=== PATIENT | female | born 1940 | race Caucasian/White ===

== ENCOUNTER 2022-03-05 13:37 | Inpatient (IN) ==
[2022-03-05] MEDS ORDERED: 0.9 % Sodium Chloride 1,000 ML IV ONE (14:34)
[2022-03-05 15:02] LABS: Basophils # 0.1 K/mcL (0.0-0.2); Basophils % 1.4 %; Eosinophils # 0.1 K/mcL (0.0-0.6); Eosinophils % 2.5 %; Hematocrit 28.6 % (35.3-44.9); Hemoglobin 8.9 g/dL (11.5-15.4); Immature Granulocytes % 0.2 % (0-4); Lymphocytes # 0.7 K/mcL (0.6-4.6); Lymphocytes % 16.5 %; Mean Corpuscular HGB Conc 31.1 g/dL (31.6-35.5); Mean Corpuscular Hemoglobin 27.9 pg (28.0-33.3); Mean Corpuscular Volume 89.7 fL (83.0-100.0); Mean Platelet Volume 10.7 fL (9.4-12.4); Monocytes # 0.4 K/mcL (0.0-1.3); Neutrophils # 3.1 K/mcL (1.6-8.9); Platelet Count 142 K/mcL (140-400); Red Blood Count 3.19 M/mcL (3.82-4.97); Red Cell Distribution Width 16.6 % (11.5-14.5); Segmented Neutrophils % 70.4 %; White Blood Count 4.4 K/mcL (4.3-11.1)
[2022-03-05 15:15] LABS: INR 1.6; Prothrombin Time 17.9 Seconds (9.4-12.1)
[2022-03-05 15:17] LABS: Activated Partial Thrombo Time 37.1 Seconds (26.0-36.0)
[2022-03-05 15:19] LABS: Alanine Aminotransferase 11 Units/L (7-52); Albumin 2.9 g/dL (3.5-5.7); Albumin/Globulin Ratio 1.3 (1.1-2.2); Alkaline Phosphatase 77 Units/L (34-104); Aspartate Amino Transferase 21 Units/L (13-39); BUN/Creatinine Ratio 14 (6-26); Bilirubin,Total 0.4 mg/dL (0.3-1.0); Blood Urea Nitrogen 10 mg/dL (8-23); Calcium 8.4 mg/dL (8.6-10.3); Carbon Dioxide 27 mEq/L (23-29); Chloride 99 mEq/L (98-107); Globulin 2.3 g/dL (2.4-3.5); Glucose 86 mg/dL (70-105); Osmolality,Calculated 270 (280-300); Potassium 4.8 mEq/L (3.5-5.1); Sodium 131 mEq/L (136-145); Total Protein 5.2 g/dL (6.4-8.9); eGFR For African Americans > 60 (> 60); eGFR For Non-African Americans > 60 (> 60)
[2022-03-05 15:25] LABS: Troponin I 0.07 ng/mL (< 0.04)
[2022-03-05] MEDS ORDERED: Iopamidol - 370 500 ML MLS IVP ONE (20:25)
[2022-03-05] MEDS ORDERED: Ondansetron ODT 4 MG TAB.RAPDIS SL PRN (21:18)
[2022-03-05] MEDS ORDERED: Acetaminophen 325 MG TABLET PO PRN (21:18)
[2022-03-05] MEDS ORDERED: Naloxone 0.4 MG/ML INJ IVP PRN (21:18)
[2022-03-05] MEDS ORDERED: Melatonin 3 MG TABLET PO PRN (21:18)
[2022-03-05] MEDS ORDERED: Perflutren Lipid Microsphere 1.3 ML in 0.9 % Sodium Chloride 8.7 ML IVP PRN (21:23)
[2022-03-05] MEDS ORDERED: Furosemide 40 MG/4 ML VIAL IVP ONE (21:24)
[2022-03-05] MEDS: *HR* HYDROcodone/Acet 5/325 mg TABLET PO PRN (22:36)
[2022-03-06 02:37] LABS: Basophils # 0.1 K/mcL (0.0-0.2); Basophils % 1.4 %; Eosinophils # 0.2 K/mcL (0.0-0.6); Eosinophils % 2.9 %; Hematocrit 29.1 % (35.3-44.9); Hemoglobin 9.1 g/dL (11.5-15.4); Immature Granulocytes % 0.6 % (0-4); Lymphocytes # 0.9 K/mcL (0.6-4.6); Lymphocytes % 16.9 %; Mean Corpuscular HGB Conc 31.3 g/dL (31.6-35.5); Mean Corpuscular Hemoglobin 28.1 pg (28.0-33.3); Mean Corpuscular Volume 89.8 fL (83.0-100.0); Mean Platelet Volume 10.3 fL (9.4-12.4); Monocytes # 0.5 K/mcL (0.0-1.3); Monocytes % 9.3 %; Neutrophils # 3.6 K/mcL (1.6-8.9); Platelet Count 140 K/mcL (140-400); Red Blood Count 3.24 M/mcL (3.82-4.97); Red Cell Distribution Width 16.5 % (11.5-14.5); Segmented Neutrophils % 68.9 %; White Blood Count 5.2 K/mcL (4.3-11.1)
[2022-03-06 02:53] LABS: Alanine Aminotransferase 11 Units/L (7-52); Albumin/Globulin Ratio 1.3 (1.1-2.2); Alkaline Phosphatase 78 Units/L (34-104); Aspartate Amino Transferase 22 Units/L (13-39); BUN/Creatinine Ratio 13 (6-26); Bilirubin,Total 0.5 mg/dL (0.3-1.0); Blood Urea Nitrogen 9 mg/dL (8-23); Calcium 8.3 mg/dL (8.6-10.3); Carbon Dioxide 26 mEq/L (23-29); Chloride 99 mEq/L (98-107); Globulin 2.3 g/dL (2.4-3.5); Glucose 74 mg/dL (70-105); Magnesium 1.7 mg/dL (1.6-2.6); Osmolality,Calculated 273 (280-300); Phosphorous 3.9 mg/dL (2.7-4.5); Potassium 3.7 mEq/L (3.5-5.1); Sodium 133 mEq/L (136-145); Total Protein 5.3 g/dL (6.4-8.9); eGFR For African Americans > 60 (> 60); eGFR For Non-African Americans > 60 (> 60)
[2022-03-06] MEDS: *HR* OxyCODONE Immed Rel 5 MG TABLET PO PRN (04:23)
[2022-03-06] MEDS ORDERED: NON-FORMULARY MEDICATION 1 EACH EACH (Oxycodone Hcl [Roxybond] 5 MG Tablet.Orl) PO PRN (08:24)
[2022-03-06] MEDS ORDERED: tiZANidine 4 MG TABLET PO PRN (08:24)
[2022-03-06] MEDS ORDERED: polyethylene glycoL 3350 17 GM POWD.PACK PO PRN (08:24)
[2022-03-06] MEDS: Sennosides 8.6 MG TABLET PO SCH ×2 (09:24→19:59)
[2022-03-06] MEDS: lisinopriL 5 MG TABLET PO SCH (09:24)
[2022-03-06] MEDS: Gabapentin 300 MG CAPSULE PO SCH ×2 (09:24→19:59)
[2022-03-06] MEDS: *HR* OxyCODONE Immed Rel 5 MG TABLET PO SCH ×3 (09:25→19:59)
[2022-03-06] MEDS: Aspirin Enteric Coated 81 MG Tablet PO SCH (09:25)
[2022-03-06] MEDS: Metoprolol XL (24 HR) Succ 25 MG TAB.ER.24H PO SCH (09:25)
[2022-03-06] MEDS: Famotidine 20 MG TABLET PO SCH (09:25)
[2022-03-06] MEDS: rOPINIRole 1 MG TABLET PO SCH (09:26)
[2022-03-06] MEDS: Furosemide 40 MG/4 ML VIAL IVP SCH ×2 (09:31→17:31)
[2022-03-06] MEDS: (Leflunomide [Arava] 20 MG Tablet) PO SCH (11:02)
[2022-03-06] MEDS: Apixaban 2.5 MG TABLET PO SCH (20:00)
[2022-03-07] MEDS: *HR* HYDROcodone/Acet 5/325 mg TABLET PO PRN (05:41)
[2022-03-07 07:05] LABS: Basophils # 0.1 K/mcL (0.0-0.2); Basophils % 1.2 %; Eosinophils # 0.1 K/mcL (0.0-0.6); Eosinophils % 2.3 %; Hematocrit 31.2 % (35.3-44.9); Hemoglobin 10.2 g/dL (11.5-15.4); Immature Granulocytes % 0.2 % (0-4); Lymphocytes # 0.6 K/mcL (0.6-4.6); Lymphocytes % 10.8 %; Mean Corpuscular HGB Conc 32.7 g/dL (31.6-35.5); Mean Corpuscular Hemoglobin 28.4 pg (28.0-33.3); Mean Corpuscular Volume 86.9 fL (83.0-100.0); Mean Platelet Volume 10.4 fL (9.4-12.4); Monocytes # 0.6 K/mcL (0.0-1.3); Monocytes % 9.9 %; Neutrophils # 4.3 K/mcL (1.6-8.9); Platelet Count 158 K/mcL (140-400); Red Blood Count 3.59 M/mcL (3.82-4.97); Red Cell Distribution Width 16.5 % (11.5-14.5); Segmented Neutrophils % 75.6 %; White Blood Count 5.6 K/mcL (4.3-11.1)
[2022-03-07 07:31] LABS: BUN/Creatinine Ratio 12 (6-26); Blood Urea Nitrogen 9 mg/dL (8-23); Calcium 7.9 mg/dL (8.6-10.3); Carbon Dioxide 29 mEq/L (23-29); Chloride 92 mEq/L (98-107); Glucose 77 mg/dL (70-105); Magnesium 1.5 mg/dL (1.6-2.6); Osmolality,Calculated 275 (280-300); Phosphorous 3.8 mg/dL (2.7-4.5); Potassium 2.7 mEq/L (3.5-5.1); Sodium 134 mEq/L (136-145); eGFR For African Americans > 60 (> 60); eGFR For Non-African Americans > 60 (> 60)
[2022-03-07 07:43] LABS: % Iron Saturation 8 % (15-50); Ferritin 127 ng/mL (10-120); Iron 22 mcg/dL (50-170); Transferrin 195 mg/dL (203-362)
[2022-03-07] MEDS ORDERED: Potassium Chloride Elixir 20 MEQ/15 ML UDC PO ONE (08:49)
[2022-03-07] MEDS ORDERED: Metoprolol XL (24 HR) Succ 25 MG TAB.ER.24H PO ONE (09:08)
[2022-03-07] MEDS: lisinopriL 5 MG TABLET PO SCH (09:37)
[2022-03-07] MEDS: Sennosides 8.6 MG TABLET PO SCH ×2 (09:37→20:18)
[2022-03-07] MEDS: rOPINIRole 1 MG TABLET PO SCH (09:37)
[2022-03-07] MEDS: Aspirin Enteric Coated 81 MG Tablet PO SCH (09:37)
[2022-03-07] MEDS: Gabapentin 300 MG CAPSULE PO SCH ×2 (09:38→20:19)
[2022-03-07] MEDS: *HR* OxyCODONE Immed Rel 5 MG TABLET PO SCH ×4 (09:38→20:23)
[2022-03-07] MEDS: Famotidine 20 MG TABLET PO SCH (09:38)
[2022-03-07] MEDS: Apixaban 2.5 MG TABLET PO SCH ×2 (09:39→20:19)
[2022-03-07] MEDS: Furosemide 40 MG/4 ML VIAL IVP SCH (09:43)
[2022-03-07 09:51] LABS: Folate 13.7 ng/mL (3.0-16.0)
[2022-03-07] MEDS: (Leflunomide [Arava] 20 MG Tablet) PO SCH (10:06)
[2022-03-07] MEDS: Furosemide 40 MG TABLET PO SCH ×2 (10:26→16:41)
[2022-03-07] MEDS: Metoprolol XL (24 HR) Succ 25 MG TAB.ER.24H PO SCH (10:35)
[2022-03-07] MEDS ORDERED: 0.9 % Sodium Chloride 500 ML IVC ONE (15:53)
[2022-03-07] MEDS ORDERED: Ketorolac 30 MG/ML VIAL IVP ONE (15:54)
[2022-03-08 06:01] LABS: Hematocrit 30.1 % (35.3-44.9); Hemoglobin 9.7 g/dL (11.5-15.4)
[2022-03-08 06:21] LABS: BUN/Creatinine Ratio 11 (6-26); Blood Urea Nitrogen 10 mg/dL (8-23); Calcium 7.7 mg/dL (8.6-10.3); Carbon Dioxide 29 mEq/L (23-29); Chloride 94 mEq/L (98-107); Glucose 92 mg/dL (70-105); Magnesium 1.8 mg/dL (1.6-2.6); Osmolality,Calculated 273 (280-300); Phosphorous 3.1 mg/dL (2.7-4.5); Potassium 2.7 mEq/L (3.5-5.1); Sodium 132 mEq/L (136-145); eGFR For African Americans > 60 (> 60); eGFR For Non-African Americans 59 (> 60)
[2022-03-08] MEDS ORDERED: Potassium Chloride Elixir 20 MEQ/15 ML UDC PO ONE (08:15)
[2022-03-08] MEDS: Gabapentin 300 MG CAPSULE PO SCH ×2 (09:16→20:39)
[2022-03-08] MEDS: Metoprolol XL (24 HR) Succ 25 MG TAB.ER.24H PO SCH (09:16)
[2022-03-08] MEDS: rOPINIRole 1 MG TABLET PO SCH (09:17)
[2022-03-08] MEDS: Apixaban 2.5 MG TABLET PO SCH ×2 (09:17→20:39)
[2022-03-08] MEDS: Sennosides 8.6 MG TABLET PO SCH ×2 (09:18→20:39)
[2022-03-08] MEDS: Aspirin Enteric Coated 81 MG Tablet PO SCH (09:18)
[2022-03-08] MEDS: Famotidine 20 MG TABLET PO SCH (09:18)
[2022-03-08] MEDS: Furosemide 40 MG TABLET PO SCH ×2 (09:18→18:15)
[2022-03-08] MEDS: *HR* OxyCODONE Immed Rel 5 MG TABLET PO SCH ×3 (09:18→20:40)
[2022-03-08] MEDS: lisinopriL 5 MG TABLET PO SCH (09:19)
[2022-03-08] MEDS: (Leflunomide [Arava] 20 MG Tablet) PO SCH (09:20)
[2022-03-08 12:39] LABS: BUN/Creatinine Ratio 10 (6-26); Blood Urea Nitrogen 10 mg/dL (8-23); Calcium 7.7 mg/dL (8.6-10.3); Carbon Dioxide 33 mEq/L (23-29); Chloride 92 mEq/L (98-107); Glucose 112 mg/dL (70-105); Osmolality,Calculated 274 (280-300); Sodium 132 mEq/L (136-145); eGFR For African Americans > 60 (> 60); eGFR For Non-African Americans 55 (> 60)
[2022-03-09] MEDS: Aspirin Enteric Coated 81 MG Tablet PO SCH (08:18)
[2022-03-09] MEDS: rOPINIRole 1 MG TABLET PO SCH (08:19)
[2022-03-09] MEDS: Metoprolol XL (24 HR) Succ 25 MG TAB.ER.24H PO SCH (08:20)
[2022-03-09] MEDS: Furosemide 40 MG TABLET PO SCH (08:21)
[2022-03-09] MEDS: *HR* OxyCODONE Immed Rel 5 MG TABLET PO SCH (08:21)
[2022-03-09] MEDS: Gabapentin 300 MG CAPSULE PO SCH (08:22)
[2022-03-09] MEDS: Famotidine 20 MG TABLET PO SCH (08:23)
[2022-03-09] MEDS: Sennosides 8.6 MG TABLET PO SCH (08:24)
[2022-03-09] MEDS: lisinopriL 5 MG TABLET PO SCH (08:24)
[2022-03-09] MEDS: Apixaban 2.5 MG TABLET PO SCH (08:24)
[2022-03-09] MEDS: (Leflunomide [Arava] 20 MG Tablet) PO SCH (08:25)
[2022-03-09 08:29] LABS: Basophils # 0.1 K/mcL (0.0-0.2); Basophils % 1.2 %; Eosinophils # 0.2 K/mcL (0.0-0.6); Eosinophils % 4.6 %; Hemoglobin 9.5 g/dL (11.5-15.4); Immature Granulocytes % 0.4 % (0-4); Lymphocytes # 1.1 K/mcL (0.6-4.6); Lymphocytes % 21.5 %; Mean Corpuscular HGB Conc 31.7 g/dL (31.6-35.5); Mean Corpuscular Hemoglobin 27.9 pg (28.0-33.3); Mean Corpuscular Volume 88.2 fL (83.0-100.0); Mean Platelet Volume 10.2 fL (9.4-12.4); Monocytes # 0.7 K/mcL (0.0-1.3); Monocytes % 13.5 %; Platelet Count 147 K/mcL (140-400); Red Cell Distribution Width 16.7 % (11.5-14.5); Segmented Neutrophils % 58.8 %
[2022-03-09 08:36] LABS: BUN/Creatinine Ratio 11 (6-26); Blood Urea Nitrogen 11 mg/dL (8-23); Calcium 6.9 mg/dL (8.6-10.3); Carbon Dioxide 33 mEq/L (23-29); Chloride 93 mEq/L (98-107); Glucose 80 mg/dL (70-105); Osmolality,Calculated 272 (280-300); Potassium 2.9 mEq/L (3.5-5.1); Sodium 132 mEq/L (136-145); eGFR For African Americans > 60 (> 60); eGFR For Non-African Americans 54 (> 60)
[2022-03-09] MEDS ORDERED: Potassium Chloride Elixir 20 MEQ/15 ML UDC PO ONE (09:36)
[2022-03-09] MEDS: *HR* OxyCODONE Immed Rel 5 MG TABLET PO PRN (10:37)
[2022-03-09 10:48] VITALS: BP 100/64; PULSE 75; TEMP 98.4; O2SAT 99
== END 2022-03-09 17:08 | DRG 291 ==
LOC: EMEROOARM 13:37 → 3NENU 13:37 → SUATTDRO 20:41 → 3NENU 21:42
PROVIDERS: ADMIT Internal Medicine; ATTEND Internal Medicine